=== PATIENT | male | born 1965 | race African-American/Black ===

== ENCOUNTER 2019-11-24 20:19 | Emergency (ER) | payer OTHER ==
[~2019-11-24] VITALS: Ht 172.7 cm; Wt 80.3 kg
--- NOTE | 2019-11-24 20:37 | NUR ---
Called Thoracic Surgeon for sitter, no sitter available, called Security to search patient for contraband and weapons, pt placed on suicide precautions, ER staff will monitor patient for now due to low census.
[2019-11-24] MEDS ORDERED: FLUPHENAZINE HCL 5 MG TABLET PO SCH (20:45)
[2019-11-24] MEDS ORDERED: BENZTROPINE MESYLATE 0.5 MG TABLET PO ONE (20:45)
--- NOTE | 2019-11-24 20:55 | NUR ---
Pt searched by security for contraband.
--- NOTE | 2019-11-24 21:00 | NUR ---
Patient is resting comfortably in bed with eyes closed. Will continue to monitor.
[2019-11-24 21:01] LABS: BASOPHILS # (AUTO) 0.1 K/uL (0.0-8.0); BASOPHILS % (AUTO) 0.9 % (0.0-2.0); EOSINOPHILS # (AUTO) 0.1 K/uL (0.0-0.7); EOSINOPHILS % (AUTO) 1.3 % (0.0-7.0); HEMATOCRIT 44.6 % (36.7-47.1); LYMPHOCYTES % (AUTO) 24.9 % (20.5-51.5); MEAN CORPUSCULAR HEMOGLOBIN 30.3 uug (23.8-33.4); MEAN CORPUSCULAR HGB CONC 34 g/dL (32.5-36.3); MEAN CORPUSCULAR VOLUME 90.2 fL (73.0-96.2); MONOCYTES # (AUTO) 0.9 K/uL (2.0-10.0); MONOCYTES % (AUTO) 11.5 % (0.0-11.0); NEUTROPHILS % (AUTO) 61.4 % (38.5-71.5); PLATELET COUNT (AUTO) 228 K/uL (152-348); RED BLOOD CELL COUNT(AUTO) 4.94 MIL/uL (4.06-5.63); WHITE BLOOD COUNT (AUTO) 8.1 K/uL (3.6-10.2)
[2019-11-24 21:05] LABS: CARBON DIOXIDE 27 mmol/L (21-32); CHLORIDE 103 mmol/L (98-107); GLUCOSE 101 mg/dL (74-106); POTASSIUM 3.8 mmol/L (3.5-5.1); UREA NITROGEN, BLOOD 11 mg/dL (7-18)
[2019-11-24 21:11] LABS: ACETAMINOPHEN < 2.0 ug/mL (10-30); ALANINE AMINOTRANSFERASE 131 U/L (16-63); ALKALINE PHOSPHATASE 97 U/L (50-136); ASPARTATE AMINOTRANSFERASE 113 U/L (15-37); BILIRUBIN,DIRECT 0.2 mg/dL (0.0-0.2); BILIRUBIN,TOTAL 0.4 mg/dL (0.2-1.0); ETHANOL 25 MG/DL (0-0); TOTAL PROTEIN, SERUM 7.6 g/dL (6.4-8.2)
[2019-11-24] MEDS ORDERED: BENZTROPINE MESYLATE 0.5 MG TABLET ONE (21:16)
[2019-11-24] MEDS ORDERED: LOSARTAN POTASSIUM 50 MG TABLET ONE (21:22)
[2019-11-24 21:26] LABS: *BILIRUBIN,URIN NEGATIVE (NEGATIVE); *BLOOD, URINE NEGATIVE (NEGATIVE); *CLARITY,URINE CLEAR (CLEAR); *COLOR,URINE YELLOW (YELLOW); *KETONES,URINE NEGATIVE (NEGATIVE); *UROBILINOGEN,URINE 0.2 E.U./dl (NORMAL); LEUKOCYTE ESTERASE ,URINE NEGATIVE (NEGATIVE); NITRITE, URINE NEGATIVE (NEGATIVE); PH,URINE 5.5 (5.0-8.0); UGLUCOSE NEGATIVE (NEGATIVE)
[2019-11-24 21:37] LABS: *AMPHETAMINE, URINE NEGATIVE (NEGATIVE); *BARBITURATE, URINE NEGATIVE (NEGATIVE); *CANNABINOID, URINE NEGATIVE (NEGATIVE); *COCCAINE, URINE NEGATIVE (NEGATIVE); *OPIATE, URINE NEGATIVE (NEGATIVE); *PHENCYCLIDINE SCREEN,URINE NEGATIVE (NEGATIVE)
[2019-11-24] MEDS: LOSARTAN POTASSIUM 50 MG TABLET PO SCH ×2 (21:42→22:07)
--- NOTE | 2019-11-24 21:49 | NUR ---
PATIENT WAS MEDICALLY CLEARED.
--- NOTE | 2019-11-24 21:52 | NUR ---
CALLED AND SPOKE WITH CHIQUI FROM [facility] FOR A POSSIBLE ADMISSION TRANSFER. WILL WAIT FOR CALL BACK.
[2019-11-24] MEDS ORDERED: FLUPHENAZINE HCL 5 MG TABLET ONE (22:06)
[2019-11-24 22:07] VITALS: BP 155/90
--- NOTE | 2019-11-24 22:18 | NUR ---
Patient is resting comfortably in bed with eyes closed
--- NOTE | 2019-11-24 22:30 | NUR ---
CHIQUI FROM [facility] CALLED RE FAXED PATIENT INFO. WILL WAIT FOR CALLBACK.
--- NOTE | 2019-11-25 01:43 | NUR ---
CALLED SPOKE WITH CHIQUI [facility]VAR[facility] PATIENT ACCEPTED.
--- NOTE | 2019-11-25 01:55 | NUR ---
CALLED AND GAVE REPORT TO IJ NURSE AT [facility]. [phone] [phone].
--- NOTE | 2019-11-25 02:05 | NUR ---
AMBULANCE WAS CALLED WITH TRIP NUMBER [id number] PICKUP [phone] AM.
--- NOTE | 2019-11-25 03:15 | NUR ---
PATIENT WAS PICKED UP BY AMBULANCE EMT REPORT GIVEN. PATIENT LEFT WITH ALL BELONGINGS. PATIENT NOTED NOT IN ANY DISTRESS. NO C/O ANY PAIN. NO SOB.
== END 2019-11-25 03:15 ==
LOC: ER 20:24
DX: F20.0 Paranoid schizophrenia (principal); F32.9 Major depressive disorder, single episode, unspecified; H54.61 Unqualified visual loss, right eye, normal vision left eye; Z86.19 Personal history of other infectious and parasitic diseases; Z59.0 Homelessness; Z72.0 Tobacco use
CPT/HCPCS: 36415; 80048; 80076; 80307 ×2; 80329; 81001; 85025; 99285; G0480; A4663